=== PATIENT | female | born 1985 ===

== ENCOUNTER 2017-03-30 07:18 | Emergency (ER) | payer OTHER ==
[2017-03-30 07:18] VITALS: BMI 27.4
[2017-03-30 07:44] VITALS: PULSE 80; RESP 16; O2SAT 99
--- NOTE | 2017-03-30 08:36 | ED PDOC ---
Arrival/HPI - General Chief Complaint: Female Genitourinary Time Seen by Provider: 03/30/17 07:44 Historian: Patient - History of Present Illness Narrative History of Present Illness (Text): 03/30/17 08:36 A 31 year old female, whose past medical history includes frequent urinary tract infections, presents to the emergency department for worsening lower abdominal pain for 2 days. Patient states her pain feels similar to prior UTI symptoms. She reports she was seen by a urologist approximately 3 months ago. Patient notes dysuria but denies any fever, chills, nausea, vomiting, diarrhea, frequency, hematuria, back pain, chest pain, shortness of breath or any other complaints. PMD: Dr. Hunter Time/Duration: Other (2 days) Symptom Course: Worsening Quality: Other Context: Home Past Medical History - Provider Review Nursing Documentation Reviewed: Yes - Past History Past History: No Previous - Infectious Disease Hx of Infectious Diseases: None - Tetanus Immunization Tetanus Immunization: Unknown - Reproductive Menopause: No - Past Medical History Past Medical History: No Previous - Genitourinary/Gynecological Hx Urinary Tract Infection: Yes - Psychiatric Hx Depression: No Hx Emotional Abuse: No Hx Physical Abuse: No Hx Substance Use: No - Surgical History Hx Section: Yes Hx Tonsillectomy: Yes - Anesthesia Hx Anesthesia: Yes Hx Anesthesia Reactions: No Hx Malignant Hyperthermia: No - Suicidal Assessment Feels Threatened In Home Enviroment: No Family/Social History - Physician Review Nursing Documentation Reviewed: Yes Family/Social History: No Known Family HX Smoking Status: Never Smoked Hx Alcohol Use: No Hx Substance Use: No Allergies/Home Meds Allergies/Adverse Reactions: Allergies No Known Allergies Allergy (Verified 06/16/16 14:58) Review of Systems - Physician Review All systems were reviewed & negative as marked: Yes - Review of Systems Constitutional: absent: Fevers, Night Sweats Respiratory: absent: SOB Cardiovascular: absent: Chest Pain Gastrointestinal: Abdominal Pain. absent: Diarrhea, Nausea, Vomiting Genitourinary Female: Dysuria. absent: Frequency, Hematuria Musculoskeletal: absent: Back Pain Physical Exam Vital Signs Reviewed: Yes Vital Signs Temp Pulse Resp BP Pulse Ox 03/30/17 12:39 98.4 F 80 16 110/66 99 03/30/17 07:39 98.3 F 80 16 122/88 99 Temperature: Afebrile Blood Pressure: Normal Pulse: Regular Respiratory Rate: Normal Appearance: Positive for: Well-Appearing, Non-Toxic, Comfortable Pain Distress: None Mental Status: Positive for: Alert and Oriented X 3 - Systems Exam Head: Present: Atraumatic, Normocephalic Pupils: Present: PERRL Extroacular Muscles: Present: EOMI Conjunctiva: Present: Normal Mouth: Present: Moist Mucous Membranes Pharnyx: No: ERYTHEMA, EXUDATE, TONSILS ENLARGED Neck: Present: Normal Range of Motion Respiratory/Chest: Present: Clear to Auscultation, Good Air Exchange. No: Respiratory Distress, Accessory Muscle Use Cardiovascular: Present: Regular Rate and Rhythm, Normal S1, S2. No: Murmurs Abdomen: Present: Tenderness (Suprapubic tenderness to palpation), Normal Bowel Sounds. No: Distention, Peritoneal Signs, Rebound, Guarding Back: Present: Normal Inspection Upper Extremity: Present: Normal Inspection, NORMAL PULSES. No: Cyanosis, Edema Lower Extremity: Present: Normal Inspection, NORMAL PULSES. No: Edema Neurological: Present: GCS=15, Speech Normal Skin: Present: Warm, Dry, Normal Color. No: Rashes Psychiatric: Present: Alert, Oriented x 3, Normal Insight, Normal Concentration Medical Decision Making ED Course and Treatment: Report Date : 03/30/2017 09:50:16 Procedure: Transvaginal ultrasound Dictator : Harrison Fields MD IMPRESSION: Intrauterine device in place but otherwise unremarkable pelvic ultrasound. Report Date : 03/30/2017 12:09:40 PROCEDURE: CT Abdomen and Pelvis with contrast Dictator : Harrison Fields MD IMPRESSION: Intrauterine device noted though does not appear to extend into the fundal endometrium. Recommend correlation with pelvic ultrasound. 03/30/17 12:15 the pt is sleeping. upon waking she reports feeling better. I disc her results w her, plan for rx, follow up, and rtr. she v/u and agrees w plan. - Lab Interpretations Lab Results: 03/30/17 09:56 03/30/17 09:56 Lab Results 03/30/17 09:56: Sodium 141, Potassium 3.9, Chloride 104, Carbon Dioxide 28, Anion Gap 13, BUN 13, Creatinine 0.6, Est GFR ( Amer) > 60, Est GFR (Non- Af Amer) > 60, Random Glucose 99, Calcium 9.3, Total Bilirubin 0.3, AST 20, ALT 40, Alkaline Phosphatase 39, Total Protein 6.8, Albumin 4.0, Globulin 2.8, Albumin/Globulin Ratio 1.4 03/30/17 09:56: WBC 9.0 D, RBC 4.90, Hgb 11.6 L, Hct 36.3, MCV 74.1 L, MCH 23.7 L, MCHC 32.0, RDW 13.8, Plt Count 281, MPV 10.8, Gran % 56.9, Lymph % (Auto ) 34.1, [place] % (Auto) 7.5 H, Eos % (Auto) 0.8 L, Baso % (Auto) 0.7, Gran # 5.12 , Lymph # 3.1, [place] # 0.7 H, Eos # 0.1, Baso # 0.06 03/30/17 08:40: Urine Color Yellow, Urine Appearance Clear, Urine pH 6.0, Ur Specific [place] 1.020, Urine Protein Negative, Urine Glucose (UA) Negative, Urine Ketones Negative, Urine Blood Negative, Urine Nitrate Negative, Urine Bilirubin Negative, Urine Urobilinogen 0.2, Ur Leukocyte Esterase Negative, Urine HCG, Qual Negative - RAD Interpretation Radiology Orders: 03/30/17 08:53 ABD & PELVIS IV CONTRAST ONLY [CT] Stat TRANSVAGINAL [US] Stat - Medication Orders Current Medication Orders: Discontinued Medications Acetaminophen (Tylenol 325mg Tab) 975 mg PO STAT STA Stop: 03/30/17 08:40 Last Admin: 03/30/17 08:52 Dose: 975 mg Iodixanol (Visipaque 320 Mg/Ml 100 Ml) Confirm Administered Dose 100 ml IV .K- MED ONE Stop: 03/30/17 10:03 - Scribe Statement The provider has reviewed the documentation as recorded by the Jennie [place]ers Provider Scribe Attestation: All medical record entries made by the Scribe were at my direction and personally dictated by me. I have reviewed the chart and agree that the record accurately reflects my personal performance of the history, physical exam, medical decision making, and the department course for this patient. I have also personally directed, reviewed, and agree with the discharge instructions and disposition. Disposition/Present on Arrival - Present on Arrival Any Indicators Present on Arrival: No History of DVT/PE: No History of Uncontrolled Diabetes: No Urinary Catheter: No History of Decub. Ulcer: No History Surgical Site Infection Following: None - Disposition Have Diagnosis and Disposition been Completed?: Yes Diagnosis: Abdominal pain Disposition: HOME/ ROUTINE Disposition Time: 12:19 Patient Problems: Current Active Problems Problem Status Onset Abdominal pain Acute Condition: IMPROVED Discharge Instructions (ExitCare): Abdominal Pain (ED) Additional Instructions: Please follow up with a primary doctor in the next week. Return to the ER for any worsening symptoms or for any other concerns. Prescriptions: Naproxen [Naprosyn] 500 mg PO Q12H PRN #10 tablet PRN Reason: Pain, Moderate (4-7) Phenazopyridine [Pyridium] 200 mg PO TID #6 tab Referrals: [facility] at [facility] [place] [Outside] - Follow up with primary Jessi Hunter DO [Primary Care Provider] - Follow up with primary Forms: [employer] (Slovak), WORK NOTE
[2017-03-30 08:47] LABS: URINE BILIRUBIN NEGATIVE (NEGATIVE); URINE BLOOD NEGATIVE (NEGATIVE); URINE GLUCOSE (UA) NEGATIVE (NEGATIVE); URINE LEUKOCYTE ESTERASE NEGATIVE Leu/uL (NEGATIVE); URINE NITRATE NEGATIVE (NEGATIVE); URINE PROTEIN NEGATIVE mg/dL (<30 mg/dL); URINE UROBILINOGEN 0.2 E.U./dL (<1 E.U./dL)
[2017-03-30 08:48] LABS: URINE APPEARANCE CLEAR (CLEAR); URINE COLOR YELLOW (YELLOW)
[2017-03-30 08:51] LABS: HCG,QUALITATIVE URINE NEGATIVE (NEGATIVE)
--- NOTE | 2017-03-30 09:51 | US ---
PROCEDURE: HISTORY: low abd pain r/o torsion COMPARISON: TECHNIQUE: FINDINGS: The uterus measures 6.2 x 5.2 x 7.0 centimeters. The endometrium measures roughly 3 millimeters with an intrauterine device in place. The right ovary measures 3.2 x 3.5 centimeters. The left ovary measures 3.0 x 1.9 centimeters. There is Doppler flow noted in both ovaries. There is no free fluid the pelvis. IMPRESSION: Intrauterine device in place but otherwise unremarkable pelvic ultrasound.
[2017-03-30 10:01] LABS: BASO # 0.06 K/mm3 (0.0-2.0); BASO % 0.7 % (0.0-3.0); EOS # 0.1 (0.0-0.7); EOS % 0.8 % (1.5-5.0); GRAN # 5.12 (1.4-6.5); GRAN % 56.9 % (50.0-68.0); HEMOGLOBIN 11.6 g/dL (12.0-16.0); LYMPH # 3.1 (1.2-3.4); LYMPH % 34.1 % (22.0-35.0); MEAN CELL VOLUME 74.1 fl (80.0-105.0); MEAN CORPUSCULAR HEMOGLOBIN 23.7 pg (25.0-35.0); MEAN PLATELET VOLUME 10.8 fl (7.0-11.0); MONO # 0.7 (0.1-0.6); MONO % 7.5 % (1.0-6.0); PLATELET COUNT 281 10^3/uL (120.0-450.0); RED CELL DISTRIBUTION WIDTH 13.8 % (11.5-14.5)
[2017-03-30] MEDS ORDERED: Iodixanol 320 MG/ML 100 ML BOTTLE IV ONE (10:02)
[2017-03-30 10:09] LABS: ALB/GLOB RATIO 1.4 (1.1-1.8); ALT/SGPT 40 U/L (7-56); AST/SGOT 20 U/L (15-39); BLOOD UREA NITROGEN 13 mg/dL (7-21); CALCIUM 9.3 mg/dL (8.4-10.5); GFR AFRICAN-AMERICAN > 60; GFR NON-AFRICAN AMERICAN > 60
--- NOTE | 2017-03-30 12:11 | CT ---
PROCEDURE: CT Abdomen and Pelvis with contrast HISTORY: abdominal pain COMPARISON: None. TECHNIQUE: Contrast dose: 100 cc of Omnipaque 300 Radiation dose: Total exam DLP = 423 mGy-cm. This CT exam was performed using one or more of the following dose reduction techniques: Automated exposure control, adjustment of the mA and/or kV according to patient size, and/or use of iterative reconstruction technique. FINDINGS: LOWER THORAX: Unremarkable. LIVER: Unremarkable. No gross lesion or ductal dilatation. GALLBLADDER AND BILE DUCTS: Unremarkable. PANCREAS: Unremarkable. No gross lesion or ductal dilatation. SPLEEN: Unremarkable. ADRENALS: Unremarkable. No mass. KIDNEYS AND URETERS: Unremarkable. No hydronephrosis. No solid mass. VASCULATURE: Unremarkable. No aortic aneurysm. BOWEL: Unremarkable. No obstruction. No gross mural thickening. APPENDIX: Normal appendix. PERITONEUM: Unremarkable. No free fluid. No free air. LYMPH NODES: Unremarkable. No enlarged lymph nodes. BLADDER: Unremarkable. REPRODUCTIVE: Intrauterine device noted though does not appear to extend into the fundal endometrium. Recommend correlation with pelvic ultrasound.. BONES: No acute fracture. OTHER FINDINGS: None. IMPRESSION: Intrauterine device noted though does not appear to extend into the fundal endometrium. Recommend correlation with pelvic ultrasound..
[2017-03-30 12:40] VITALS: BP 110/66; TEMP 98.4
== END 2017-03-30 12:45 | disposition home or self-care (01) ==
LOC: ED 07:18
DX: R10.9 Unspecified abdominal pain (principal)
CPT/HCPCS: 74177; 76830; 80053; 81003; 84703; 85025; 87086; 99283; Q9967

== ENCOUNTER 2018-11-11 16:14 | Emergency (ER) | payer SELFPAY ==
[2018-11-11 16:30] VITALS: BMI 31.8
[2018-11-11 16:33] VITALS: RESP 18; O2SAT 98
--- NOTE | 2018-11-11 16:39 | ED PDOC ---
Arrival/HPI - General Chief Complaint: GI Problem Time Seen by Provider: 11/11/18 16:35 Historian: Patient - History of Present Illness Narrative History of Present Illness (Text): 11/11/18 16:36 33 y/o female, no significant pmh, nkda, c/o dysuria x 2 weeks with cough and sorethroat x 4 days. Pt. stated that she has suprapubic pain with burning urinary sensation x 2 weeks, no flank or abdominal pain. Pt. also complaining dry coughing and sorethroat x 4 days, no fever or chills, no chest pain or shortness of breath, no night sweat, no dizziness, no change in vision, no rash, no other medical or psychological complaints. Past Medical History - Provider Review Nursing Documentation Reviewed: Yes - Past History Past History: No Previous - Infectious Disease Hx of Infectious Diseases: None - Tetanus Immunization Tetanus Immunization: Unknown - Past Medical History Past Medical History: No Previous - Genitourinary/Gynecological Hx Urinary Tract Infection: Yes - Psychiatric Hx Depression: No Hx Emotional Abuse: No Hx Physical Abuse: No Hx Substance Use: No - Surgical History Hx Section: Yes Hx Tonsillectomy: Yes - Anesthesia Hx Anesthesia: Yes Hx Anesthesia Reactions: No Hx Malignant Hyperthermia: No - Suicidal Assessment Feels Threatened In Home Enviroment: No Family/Social History - Physician Review Nursing Documentation Reviewed: Yes Family/Social History: Unknown Family HX Smoking Status: Never Smoked Hx Alcohol Use: No Hx Substance Use: No Allergies/Home Meds Allergies/Adverse Reactions: Allergies No Known Allergies Allergy (Verified 11/11/18 16:29) Review of Systems - Review of Systems Constitutional: absent: Fatigue, Fevers Eyes: absent: Vision Changes ENT: Sore Throat. absent: Hearing Changes Respiratory: Cough. absent: SOB, Sputum, Wheezing Cardiovascular: absent: Chest Pain Gastrointestinal: absent: Abdominal Pain, Diarrhea, Nausea, Vomiting Genitourinary Female: Dysuria. absent: Frequency, Hematuria, Urine Output Changes, Vaginal Bleeding, Vaginal Discharge Musculoskeletal: absent: Arthralgias, Back Pain, Neck Pain Skin: absent: Rash, Pruritis Neurological: absent: Headache, Dizziness Psychiatric: absent: Anxiety, Depression, Suicidal Ideation Physical Exam Vital Signs Reviewed: Yes Vital Signs Temp Pulse Resp BP Pulse Ox 11/11/18 16:33 97.5 F L 92 H 18 111/67 98 Temperature: Afebrile Blood Pressure: Normal Pulse: Regular Respiratory Rate: Normal Appearance: Positive for: Well-Appearing, Non-Toxic, Comfortable Pain Distress: Mild Mental Status: Positive for: Alert and Oriented X 3 - Systems Exam Head: Present: Atraumatic, Normocephalic Pupils: Present: PERRL Extroacular Muscles: Present: EOMI Conjunctiva: Present: Normal Ears: Present: NORMAL TM, Normal Canal. No: Erythema Mouth: Present: Moist Mucous Membranes Pharnyx: No: ERYTHEMA, EXUDATE, TONSILS ENLARGED, Peritonsilar Swelling, Uvular Deviation, Muffled/Hoarse Voice, Strider, Soft Palate/Uvular Edema Neck: Present: Normal Range of Motion, Trachea Midline. No: Meningeal Signs, MIDLINE TENDERNESS, Paraspinal Tenderness, Lymphadenopathy Respiratory/Chest: Present: Clear to Auscultation, Good Air Exchange. No: Respiratory Distress, Accessory Muscle Use, Wheezes, Decreased Breath Sounds, Rales, Retracting, Rhonchi, Tachypneic, Tender to Palpation Cardiovascular: Present: Regular Rate and Rhythm, Normal S1, S2. No: Murmurs Abdomen: No: Tenderness, Distention, Peritoneal Signs, Rebound, Guarding Back: Present: Normal Inspection. No: CVA Tenderness, Midline Tenderness, Paraspinal Tenderness, Pain with Leg Raise, Decubitus Ulcer Upper Extremity: Present: Normal Inspection. No: Cyanosis, Edema Lower Extremity: Present: Normal Inspection. No: Edema Neurological: Present: GCS=15, CN II-XII Intact, Speech Normal, Motor Func Grossly Intact, Normal Cerebellar Funct, Gait Normal, Memory Normal Skin: Present: Warm, Dry, Normal Color. No: Rashes Psychiatric: Present: Alert, Oriented x 3, Normal Insight, Normal Concentration Medical Decision Making ED Course and Treatment: 11/11/18 17:00 -labs -chest xray -IV toradol -Observe and reassess 11/11/18 19:18 -Urine hcg is negative -UA show mild UTI -Rapid strep is negative -Labs are non-significant -Chest xray ER wet read: no active disease -Pt. feels well and much better. -Discharge home with bromfed dm, zithromax, macrobid, tylenol, bed rest, follow up with your own pmd within 2 days, return to the ER for any new or worsening signs or symptoms. - RAD Interpretation Radiology Orders: Date of service: 11/11/2018 HISTORY: coiugh COMPARISON: No prior. TECHNIQUE: 1 view obtained. FINDINGS: LUNGS: No active pulmonary disease. PLEURA: No significant pleural effusion identified, no pneumothorax apparent. CARDIOVASCULAR: No aortic atherosclerotic calcification present. Normal cardiac size. No pulmonary vascular congestion. OSSEOUS STRUCTURES: No significant abnormalities. VISUALIZED UPPER ABDOMEN: Normal. OTHER FINDINGS: None. IMPRESSION: No active disease. Deburrer: Radiologist - PA / CLEANING AND WASHING EQUIPMENT OPERATOR / Resident Statement MD/DO has reviewed & agrees with the documentation as recorded. Disposition/Present on Arrival - Present on Arrival Any Indicators Present on Arrival: No History of DVT/PE: No History of Uncontrolled Diabetes: No Urinary Catheter: No History of Decub. Ulcer: No History Surgical Site Infection Following: None - Disposition Have Diagnosis and Disposition been Completed?: Yes Diagnosis: URI (upper respiratory infection), UTI (urinary tract infection) Disposition: HOME/ ROUTINE Disposition Time: 19:19 Patient Plan: Discharge Condition: IMPROVED Additional Instructions: -Discharge home with bromfed dm, zithromax, macrobid, tylenol, bed rest, follow up with your own pmd within 2 days, return to the ER for any new or worsening signs or symptoms. Prescriptions: Acetaminophen [Tylenol] 2 cap PO QID PRN #30 capsule PRN Reason: Other Azithromycin [Zithromax] 250 mg PO DAILY #6 tab Brompheniramine/Pseudoephed/Dm [Bromfed Dm Cough 118 ml] 10 ml PO QID PRN #250 ml PRN Reason: Other Nitrofurantoin Macrocrystals [Macrobid] 100 mg PO BID #14 cap Referrals: [facility] at [facility] [place] [Outside] - Follow up with primary Rosita Alejandro MD [Staff Provider] - Follow up with primary Forms: [employer] (Belarusian), WORK NOTE
[2018-11-11 18:06] VITALS: BP 113/69; PULSE 86
[2018-11-11 18:18] LABS: BASO # 0.07 K/mm3 (0.0-2.0); BASO % 0.7 % (0.0-3.0); EOS # 0.1 (0.0-0.7); EOS % 0.7 % (1.5-5.0); HEMOGLOBIN 13.1 g/dL (12.0-16.0); LYMPH % 28.4 % (22.0-35.0); MEAN CORPUSCULAR HEMOGLOBIN 23.9 pg (25.0-35.0); MEAN PLATELET VOLUME 10.9 fl (7.0-11.0); MONO # 0.4 (0.1-0.6); MONO % 3.6 % (1.0-6.0); RBC 5.47 10^6/uL (3.5-6.1); RED CELL DISTRIBUTION WIDTH 14.3 % (11.5-14.5); WHITE BLOOD COUNT 10.7 10^3/uL (4.5-11.0)
[2018-11-11 18:27] LABS: ALB/GLOB RATIO 1.3 (1.1-1.8); ALBUMIN 4.5 g/dL (3.0-4.8); ALT/SGPT 40 U/L (7-56); AST/SGOT 26 U/L (14-36); BLOOD UREA NITROGEN 18 mg/dL (7-21); CALCIUM 9.6 mg/dL (8.4-10.5); GFR NON-AFRICAN AMERICAN > 60; LIPASE 75 U/L (23-300)
[2018-11-11 18:33] LABS: URINE BILIRUBIN NEGATIVE (NEGATIVE); URINE BLOOD NEGATIVE (NEGATIVE); URINE GLUCOSE (UA) NEGATIVE (NEGATIVE); URINE LEUKOCYTE ESTERASE SMALL Leu/uL (NEGATIVE); URINE PROTEIN NEGATIVE mg/dL (<30 mg/dL); URINE UROBILINOGEN 0.2 E.U./dL (<1 E.U./dL)
[2018-11-11 18:35] LABS: URINE APPEARANCE SL CLOUDY (CLEAR); URINE COLOR YELLOW (YELLOW)
[2018-11-11 18:39] LABS: URINE BACTERIA TRACE /hpf; URINE RBC 0 - 2 /hpf (0-2)
[2018-11-11 19:41] VITALS: TEMP 97.6
--- NOTE | 2018-11-12 07:54 | RAD ---
Date of service: 11/11/2018 HISTORY: coiugh COMPARISON: No prior. TECHNIQUE: 1 view obtained. FINDINGS: LUNGS: No active pulmonary disease. PLEURA: No significant pleural effusion identified, no pneumothorax apparent. CARDIOVASCULAR: No aortic atherosclerotic calcification present. Normal cardiac size. No pulmonary vascular congestion. OSSEOUS STRUCTURES: No significant abnormalities. VISUALIZED UPPER ABDOMEN: Normal. OTHER FINDINGS: None. IMPRESSION: No active disease.
== END 2018-11-11 19:34 | disposition home or self-care (01) ==
LOC: ED 16:14
DX: N39.0 Urinary tract infection, site not specified (principal); J06.9 Acute upper respiratory infection, unspecified

== ENCOUNTER 2019-01-13 22:41 | Emergency (ER) | payer SELFPAY ==
[2019-01-13 22:41] VITALS: BMI 31.8
[2019-01-13 22:59] VITALS: TEMP 98.2
--- NOTE | 2019-01-13 23:44 | ED PDOC ---
Arrival/HPI - General Chief Complaint: Abdominal Pain Time Seen by Provider: 01/13/19 22:46 Historian: Patient - History of Present Illness Narrative History of Present Illness (Text): 01/13/19 23:40 33 yo F presents emergency room complaining of intermittent suprapubic pain associated with dysuria for the past 4 days. Otherwise she reports no fever, chills, nausea, vomiting, diarrhea, back pain, vaginal bleeding, vaginal dis charge. She reports normal appetite and normal bowel movements. Patient has no other complaints. Past Medical History - Past History Past History: No Previous - Infectious Disease Hx of Infectious Diseases: None - Tetanus Immunization Tetanus Immunization: Unknown - Past Medical History Past Medical History: No Previous - Cardiac Hx Cardiac Disorders: No - Pulmonary Hx Respiratory Disorders: No - Neurological Hx Neurological Disorder: No - Endocrine/Metabolic Hx Endocrine Disorders: No - Hematological/Oncological Hx Blood Disorders: No - Integumentary Hx Dermatological Disorder: No - Musculoskeletal/Rheumatological Hx Musculoskeletal Disorders: No - Gastrointestinal Hx Gastrointestinal Disorders: No - Genitourinary/Gynecological Hx Genitourinary Disorders: No Hx Urinary Tract Infection: Yes - Psychiatric Hx Depression: No Hx Emotional Abuse: No Hx Physical Abuse: No Hx Substance Use: No - Surgical History Hx Section: Yes Hx Tonsillectomy: Yes - Anesthesia Hx Anesthesia: Yes Hx Anesthesia Reactions: No Hx Malignant Hyperthermia: No - Suicidal Assessment Feels Threatened In Home Enviroment: No Family/Social History Family/Social History: No Known Family HX Smoking Status: Never Smoked Hx Alcohol Use: No Hx Substance Use: No Allergies/Home Meds Allergies/Adverse Reactions: Allergies No Known Allergies Allergy (Verified 01/13/19 22:59) Review of Systems - Review of Systems Constitutional: absent: Fatigue, Fevers Respiratory: absent: SOB, Cough Cardiovascular: absent: Chest Pain, Palpitations Gastrointestinal: Abdominal Pain. absent: Diarrhea, Nausea, Vomiting Genitourinary Female: Dysuria. absent: Frequency, Hematuria, Vaginal Bleeding, Vaginal Discharge Musculoskeletal: absent: Arthralgias, Back Pain Skin: absent: Rash, Pruritis, Skin Lesions Neurological: absent: Headache, Dizziness Physical Exam Vital Signs Temp Pulse Resp BP Pulse Ox 01/13/19 22:59 98.2 F 89 18 102/68 99 Temperature: Afebrile Blood Pressure: Normal Pulse: Regular Respiratory Rate: Normal Appearance: Positive for: Well-Appearing, Non-Toxic, Comfortable Pain Distress: None Mental Status: Positive for: Alert and Oriented X 3 - Systems Exam Head: Present: Atraumatic, Normocephalic Pupils: Present: PERRL Extroacular Muscles: Present: EOMI Conjunctiva: Present: Normal Mouth: Present: Moist Mucous Membranes Neck: Present: Normal Range of Motion. No: Meningeal Signs, Lymphadenopathy Respiratory/Chest: Present: Clear to Auscultation, Good Air Exchange. No: Respiratory Distress, Accessory Muscle Use Cardiovascular: Present: Regular Rate and Rhythm, Normal S1, S2. No: Murmurs Abdomen: Present: Tenderness (+mild suprapubic tenderness). No: Distention, Peritoneal Signs, Rebound, Guarding Back: Present: Normal Inspection. No: CVA Tenderness Upper Extremity: Present: Normal Inspection. No: Cyanosis, Edema Lower Extremity: Present: Normal Inspection. No: Edema Neurological: Present: GCS=15, CN II-XII Intact, Speech Normal Skin: Present: Warm, Dry, Normal Color. No: Rashes Psychiatric: Present: Alert, Oriented x 3, Normal Insight, Normal Concentration Medical Decision Making ED Course and Treatment: 01/13/19 23:45 Plan : - Uhcg - UA - Urine cx Uhcg : (-) UA : +small LE, (-) nitrates. Urine cx sent and pending. Diagnosis of likely UTI d/w the patient, will treat considering the patient's symptoms. Patient medicated with marcobid po and pyridium po. On reevaluation, patient remains awake alert and oriented 3 in no acute distress. Results and diagnosis d/w the patient. Advised to follow up with the clinic in 1-2 days without fail. Advised to take medication as prescribed. Return to the emergency room at any time for any new or worsening symptoms. Patient states she fully agrees with and understands discharge instructions. States that she agrees with the plan and disposition. Verbalized and repeated discharge instructions and plan. I have given the patient opportunity to ask any additional questions. - PA / DESIGN MANAGER / Resident Statement / has reviewed & agrees with the documentation as recorded. Disposition/Present on Arrival - Present on Arrival Any Indicators Present on Arrival: No History of DVT/PE: No History of Uncontrolled Diabetes: No Urinary Catheter: No History of Decub. Ulcer: No History Surgical Site Infection Following: None - Disposition Have Diagnosis and Disposition been Completed?: Yes Diagnosis: UTI (urinary tract infection) Disposition: HOME/ ROUTINE Disposition Time: 00:30 Patient Plan: Discharge Condition: STABLE Discharge Instructions (ExitCare): Urinary Tract Infections in Adults Additional Instructions: Thank you for letting us take care of you today. You were treated for UTI. The emergency medical care you received today was directed at your acute symptoms. If you were prescribed any medication, please fill it and take as directed. It may take several days for your symptoms to resolve. Return to the Emergency Department if your symptoms worsen, do not improve, or if you have any other problems. Please contact your doctor in 2 days for re-evaluation and follow up / or call one of the physicians/clinics you have been referred to that are listed on the Patient Visit Information form that is included in your discharge packet. Bring any paperwork you were given at discharge with you along with any medications you are taking to your follow up visit. Our treatment cannot replace ongoing medical care by a primary care provider (PCP) outside of the emergency department. Thank you for allowing the [facility] team to be part of your care today. If you had a urine culture: It will take several days for the results, if any change in treatment is needed we will contact you. Prescriptions: Nitrofurantoin Macrocrystals [Macrobid] 100 mg PO BID #14 cap Phenazopyridine [Pyridium] 200 mg PO BID #6 tab Forms: [employer] (Lao), WORK NOTE
[2019-01-13 23:52] LABS: URINE BILIRUBIN NEGATIVE (NEGATIVE); URINE BLOOD NEGATIVE (NEGATIVE); URINE GLUCOSE (UA) NEGATIVE (NEGATIVE); URINE LEUKOCYTE ESTERASE SMALL Leu/uL (NEGATIVE); URINE PROTEIN TRACE mg/dL (<30 mg/dL); URINE UROBILINOGEN 0.2 E.U./dL (<1 E.U./dL)
[2019-01-13 23:56] LABS: URINE APPEARANCE SL CLOUDY (CLEAR); URINE COLOR YELLOW (YELLOW)
[2019-01-14 00:17] LABS: URINE BACTERIA FEW /hpf; URINE EPITHELIAL CELLS MANY /hpf (0-5); URINE RBC 0 - 2 /hpf (0-2)
[2019-01-14 00:52] VITALS: BP 114/68; PULSE 87; RESP 16; O2SAT 97
== END 2019-01-14 01:17 | disposition home or self-care (01) ==
LOC: ED 22:41
DX: N39.0 Urinary tract infection, site not specified (principal)